=== PATIENT | female | born 1965 | race Caucasian/White ===

== ENCOUNTER 2016-09-28 11:53 | Day surgery (SDC) | payer BC ==
--- NOTE | ~2016-09-28 | OP ---
Record Of Operation [facility] [address] [place]. [address] NAME: JACOB CUEVAS : 65 STATUS : [facility]#: [id number] AGE: 51 ADM/REG DATE : 09/28/16 MR#: [id number] REPORT SERV DATE: 09/30/16 DICTATED BY: BIB KELLEY DATE: 09/30/16 REPORT STATUS : Draft TRANSCRIBED BY: MODDarrick DATE: 09/30/16 DATE OF PROCEDURE: 09/28/2016 POSTOPERATIVE DIAGNOSIS: Invasive ductal carcinoma, right breast. POSTOPERATIVE DIAGNOSIS: Invasive ductal carcinoma, right breast. PROCEDURE: Right axillary sentinel lymph node biopsy x4 followed by a right breast lumpectomy. ANESTHESIA: General laryngeal mask. ESTIMATED BLOOD LOSS: Nil. FLUIDS: Crystalloid. SPECIMEN: Four axillary sentinel nodes and right breast mass. DRAINS: None. COMPLICATIONS: None. CONDITION: Good. INDICATIONS: Ms. Cuevas is a 51-year-old who presented for evaluation of a right breast mass. It has been found to be a triple-positive fairly high-grade tumor. By MR imaging, maximum dimension 27 mm. No evidence of metastatic disease. She was evaluated by myself. Medical Oncology felt to be appropriate to pursue neoadjuvant chemotherapy to include Herceptin. Unfortunately, the patient is new to her job and really cannot afford the down or disability time that would be expected with neoadjuvant chemotherapy. The case was reviewed again with myself, Dr. Westbrook. The patient really would prefer to pursue immediate surgical intervention with expectation of an early return to work and would prefer to pursue adjuvant chemotherapy at a later date when she has actually qualified for leave time. We feel that this is a very reasonable request and approach, as we do not have good information that neoadjuvant treatment would provide a better outcome than adjuvant. Again after review of risks, benefits, options, side effects, normal recommended treatment, the patient wishes to proceed with surgery, which is reasonable, and we are proceeding. PROCEDURE IN DETAIL: After being identified in the preop holding, she was brought the OR and positioned supine. General laryngeal mask anesthesia was induced and a time-out was performed. She had undergone preop lymphoscintigraphy that showed drainage to the right axilla. The right breast, chest, axilla, and upper extremity were prepped and draped sterilely. Ancef was given intravenously. We surveyed with the Neoprobe and there was a very focal point of activity in the low anterior axilla 31291 count per 10 seconds. We made a transverse incision, dissected through a very thin subcu layer and exposed the axilla. Record Of Operation [facility] [address] [place]. [address] NAME: JACOB CUEVAS : 65 STATUS : [facility] PAT#: [id number] AGE: 51 ADM/REG DATE : 09/28/16 MR#: [id number] REPORT SERV DATE: 09/30/16 DICTATED BY: BIB KELLEY DATE: 09/30/16 REPORT STATUS : Draft TRANSCRIBED BY: MODL DATE: 09/30/16 There was a very focal point of activity that corresponded to a 4 mm lymph node. This lymph node was excised and the ex vivo had an activity of 11,064 count per 10 seconds. This was labeled and sent as a sentinel node #1. We resurveyed the axilla and identified a focal point of activity of 9870 count per 10 seconds. We dissected this area and encountered an additional soft 3-4 mm lymph node. This node was excised, ex vivo activity was 54,237 count per 10 seconds. This was labeled and sent as a sentinel node #2. We now again surveyed the axilla with Neoprobe and identified a focal point of activity 9400 count per 10 seconds, again corresponding to a rather small 3-4 mm lymph node. This was excised, ex vivo count 10,218 count per 10 seconds. This was labeled and sent as a sentinel node #3. We surveyed the axilla in a very high. In the axilla, there appeared to be a focal activity in vivo of 5629 count per 10 seconds. We dissected and I was really not able to readily identify a lymph node both to inspection or palpation. I ultimately identified a lymph node again about 3-4 mm soft that seemed to be in the area of focal activity. This was excised, but ex vivo counts were only 900 per 10 seconds. This was labeled and sent as sentinel node #4. There again continued to be a fairly high degree of focal activity in the very high medial axilla. I was not able to readily identify a lymph node, and after having sampled the four nodes, I felt that we were adequately represented. At this point, we broadly infiltrated the axilla, subcu, and skin with the Marcaine 0.5% solution. The subcu was closed with running layers of 3-0 Vicryl. Dermis was closed with 4-0 Monocryl. We now turned our attention to the right breast where there was a palpable mass just superior to the nipple areolar complex, slightly medial. We marked this out with a skin pen and made an elliptical incision parallel to the nipple-areolar complex, leaving a small paddle of skin over the mass. We dissected subcu medial, lateral, superior, and inferior, and then dissected through the breast parenchyma circumferential palpably keeping the mass nicely centered. Once the mass had been excised, the orienting sutures were placed and it was sent in formalin for histopathology. There was excellent hemostasis. We broadly infiltrated the breast, subcu, and skin with the 0.5% Marcaine solution. The subcu was closed deeply with interrupted 3-0 Vicryl. The superficial subcu was closed with running 3- 0 Vicryl. Dermis was closed with 4-0 Monocryl. Mastisol, Steri-Strips, and sterile dressings were applied to both incisions. The patient tolerated the surgery quite well. She was recovered from anesthetic, extubated, and transported to the recovery room in good condition. JANESSA/REJI Bib Kelley M.D. / [id number] CC: Dennis Chavez STEPHANIE E
[~2016-09-28 11:53] MED LIST: SYN88 PO
[2016-09-28 13:45] LABS: BASOPHILS 0.5 %; BASOPHILS ABSOLUTE 0.04 10/3/uL (0.0-0.16); EOSINOPHILS 3.9 %; EOSINOPHILS ABSOLUTE 0.32 10/3/uL (0.0-0.53); HEMATOCRIT 37.8 % (36.0-48.0); HEMOGLOBIN 12.6 g/dL (12.0-16.0); IMMATURE GRANULOCYTES 0.2 %; IMMATURE GRANULOCYTES ABSOLUTE 0.02 10/3/uL (0.0-0.11); LYMPHOCYTES ABSOLUTE 1.66 10/3/uL (0.67-4.30); MEAN CORPUS HGB CONC 33.3 g/dL (32.0-36.0); MEAN CORPUSCULAR HEMOGLOB 32.6 pg (26.0-34.0); MEAN CORPUSCULAR VOLUME 97.9 fL (80-100); MEAN PLATELET VOLUME 9.5 fL (9.2-13.0); MONOCYTES 7.8 %; MONOCYTES ABSOLUTE 0.65 10/3/uL (0.21-1.20); NEUTROPHILS 67.6 %; PLATELET COUNT 301 10/3/uL (150-400); RBC DISTRIBUTION WIDTH 13.6 % (12.0-16.0); RED CELL COUNT 3.86 10/6/uL (4.0-5.6); WHITE BLOOD CELLS 8.3 10/3/uL (4.5-10.5)
[2016-09-28 13:46] LABS: MANUAL DIFF NO %
[2016-09-28 14:01] LABS: A/G RATIO 1.3 (0.7-1.9); ALBUMIN 4.3 G/DL (3.5-5.0); ALKALINE PHOSPHATASE 59 U/L (45-117); BUN (BLOOD UREA NITROGEN) 19 MG/DL (6-23); CALCIUM, SERUM 9.6 MG/DL (8.5-10.4); CHLORIDE, SERUM 105 MMOL/L (96-112); CO2 (CARBON DIOXIDE) 26 MMOL/L (24-34); GFR AFRICAN AMERICAN 99 ML/MIN (>=60); GFR NON AFRICAN AMERICAN 85 ML/MIN (>=60); GLOBULIN 3.3 G/DL (2.5-4.1); GLUCOSE, SERUM 88 MG/DL (60-99); POTASSIUM, SERUM 4.2 MMOL/L (3.5-5.3); SGOT(AST) 18 U/L (5-40); SGPT(ALT) 19 U/L (5-65); SODIUM, SERUM 139 MMOL/L (135-148); TOTAL BILIRUBIN 0.7 MG/DL (0-1.2); TOTAL PROTEIN 7.6 G/DL (6.0-8.5)
[2016-11-14] MEDS ORDERED: WELLSR150 PO (13:45)
== END 2016-09-28 18:47 | disposition home or self-care (01) ==
LOC: SDC 11:53
PROVIDERS: Surgery
PROC: 07B50ZX Excision of Right Axillary Lymphatic, Open Approach, Diagnostic (ICD-10-PCS; 2016-09-28)
PROC: 0HBT0ZZ Excision of Right Breast, Open Approach (ICD-10-PCS; principal; 2016-09-28 13:45)
DX: C50.411 Malignant neoplasm of upper-outer quadrant of right female breast (principal); E03.9 Hypothyroidism, unspecified; F17.210 Nicotine dependence, cigarettes, uncomplicated; Z17.0 Estrogen receptor positive status [ER+]; Z90.710 Acquired absence of both cervix and uterus; Z87.442 Personal history of urinary calculi; Z79.899 Other long term (current) drug therapy; Z98.890 Other specified postprocedural states
CPT/HCPCS: 78195; 80053; 85025; 88307; 88342; 93005; A9270-GY; A9541; J0690; J1885; J2250; J2405; J3010